=== PATIENT | female | born 1950 | race Caucasian/White ===

== ENCOUNTER 2017-03-07 15:11 | Emergency (ER) | payer MEDICARE, OTHER ==
[~2017-03-07] VITALS: Ht 165.1 cm; Wt 90.7 kg
[2017-03-07] MEDS ORDERED: PSEU30TA35 PO (15:25)
[2017-03-07] MEDS ORDERED: FLUC50TA PO (15:25)
[2017-03-07] MEDS ORDERED: TRAZ-144 PO (15:25)
[2017-03-07] MEDS ORDERED: TIOT18CA3 IH (15:25)
[2017-03-07] MEDS ORDERED: BUPR300T52 PO (15:25)
[2017-03-07] MEDS ORDERED: MOME17SP NS (15:25)
[2017-03-07] MEDS ORDERED: FOLI1TAB16 PO (15:25)
--- NOTE | 2017-03-07 15:30 | NUR ---
DR SANCHEZ AT BEDSIDE MSE DONE.
[2017-03-07] MEDS ORDERED: TDAP DIPH,PERTUSS,TET VAC/PF 0.5 ML DISP.SYRIN IM ONE ×2 (15:45→15:54)
--- NOTE | 2017-03-07 15:52 | NUR ---
Patient discharged to home in stable conditon. Written and verbal after care instructions given. Patient verbalizes understanding of instructions. Rt foot has no bleeding no redness no swelling. Pain 1/10.
[2017-03-07 15:54] VITALS: BP 153/77
== END 2017-03-07 15:54 | disposition home or self-care (01) ==
LOC: ER 15:12
DX: S91.332A Puncture wound without foreign body, left foot, initial encounter (principal); Z88.1 Allergy status to other antibiotic agents; Z88.8 Allergy status to other drugs, medicaments and biological substances; W22.8XXA Striking against or struck by other objects, initial encounter; Y93.89 Activity, other specified; Y92.9 Unspecified place or not applicable; Y99.9 Unspecified external cause status
CPT/HCPCS: 90715; A4663

== ENCOUNTER 2019-08-09 18:02 | Emergency (ER) | payer MEDICARE, OTHER ==
[~2019-08-09] VITALS: Ht 165.1 cm; Wt 102.1 kg
[~2019-08-09 18:02] MED LIST: BUPR300T52 PO; FLUC50TA PO; FOLI1TAB16 PO; MOME17SP NS; PSEU30TA35 PO; TIOT18CA3 IH; TRAZ-182 PO
--- NOTE | 2019-08-09 18:48 | NUR ---
ASSISSTED MD WITH EXAMINATION OF ABSCESS ON THE LEFT BUTTOCK
[2019-08-09] MEDS ORDERED: LIDOCAINE HCL 1% 20 ML VIAL MC ONE (19:00)
[2019-08-09 19:16] LABS: BASOPHILS # (AUTO) 0.1 K/uL (0.0-8.0); BASOPHILS % (AUTO) 1.2 % (0.0-2.0); EOSINOPHILS # (AUTO) 0.1 K/uL (0.0-0.7); EOSINOPHILS % (AUTO) 1.4 % (0.0-7.0); HEMOGLOBIN 13.6 g/dL (10.9-14.3); LYMPHOCYTES # (AUTO) 2.3 K/uL (20.0-40.0); LYMPHOCYTES % (AUTO) 33.2 % (20.5-51.5); MEAN CORPUSCULAR HEMOGLOBIN 28.2 uug (24.7-32.8); MEAN CORPUSCULAR HGB CONC 33 g/dL (32.3-35.6); MEAN CORPUSCULAR VOLUME 85.1 fL (75.5-95.3); MONOCYTES # (AUTO) 0.3 K/uL (2.0-10.0); MONOCYTES % (AUTO) 3.9 % (0.0-11.0); NEUTROPHILS # (AUTO) 4.1 K/uL (1.8-8.9); NEUTROPHILS % (AUTO) 60.3 % (38.5-71.5); PLATELET COUNT (AUTO) 243 K/uL (179-408); RED BLOOD CELL COUNT(AUTO) 4.82 MIL/uL (3.63-4.92); WHITE BLOOD COUNT (AUTO) 6.9 K/uL (3.8-11.8)
[2019-08-09 19:22] LABS: CREATININE 0.9 mg/dL (0.6-1.3); POTASSIUM 3.6 mmol/L (3.5-5.1)
[2019-08-09] MEDS ORDERED: CEphaleXIN 500 MG CAPSULE PO ONE (19:45)
[2019-08-09] MEDS ORDERED: CEphaleXIN 500 MG CAPSULE ONE (19:46)
[2019-08-09] MEDS ORDERED: HYDROCHLOROTHIAZIDE 25 MG TABLET ONE (20:00)
[2019-08-09] MEDS ORDERED: HYDROCHLOROTHIAZIDE 25 MG TABLET PO ONE (20:00)
[2019-08-09 20:05] VITALS: BP 183/90
--- NOTE | 2019-08-09 20:05 | NUR ---
Patient discharged to home in stable conditon. Written and verbal after care instructions given. Patient verbalizes understanding of instructions. PATIENT LEFT WITH STABLE GAIT.
== END 2019-08-09 20:06 | disposition home or self-care (01) ==
LOC: ER 18:02
DX: I10 Essential (primary) hypertension (principal); L02.31 Cutaneous abscess of buttock; L03.317 Cellulitis of buttock; Z90.710 Acquired absence of both cervix and uterus; Z88.1 Allergy status to other antibiotic agents; Z88.8 Allergy status to other drugs, medicaments and biological substances; Z79.899 Other long term (current) drug therapy
CPT/HCPCS: 10060; 36415; 80048; 85025; 99283; J3490; A4663

== ENCOUNTER 2019-08-11 18:03 | Emergency (ER) | payer MEDICARE, OTHER ==
[~2019-08-11] VITALS: Ht 165.1 cm; Wt 102.1 kg
--- NOTE | 2019-08-11 18:52 | NUR ---
Female health diagnostics teacher accompanied female patient for ( Dr Almendarez ).
[2019-08-11] MEDS ORDERED: NEOMY/BACITRA/POLYMYXIN B OINT UD PACKET TP ONE ×2 (18:55→19:00)
--- NOTE | 2019-08-11 19:00 | NUR ---
Patient discharged to home in stable conditon. Written and verbal after care instructions given. Patient verbalizes understanding of instructions. Patient ambulated with stable gait.
[2019-08-11 19:01] VITALS: BP 115/83
== END 2019-08-11 19:01 | disposition home or self-care (01) ==
LOC: ER 18:03
DX: L02.31 Cutaneous abscess of buttock (principal); I10 Essential (primary) hypertension; Z90.710 Acquired absence of both cervix and uterus; Z88.8 Allergy status to other drugs, medicaments and biological substances; Z88.1 Allergy status to other antibiotic agents; Z79.899 Other long term (current) drug therapy
CPT/HCPCS: A4663